=== PATIENT | male | born 1965 | race Caucasian/White ===

== ENCOUNTER → 2017-07-19 | Outpatient (CLI) | payer BC ==
[~2017-07-19] MED LIST: BND25X PO; IBUP-1050 PO; PRAV20TA PO
[2017-07-19 16:13] LABS: ALT/SGPT 24 U/L (12-78); BLOOD UREA NITROGEN 14 mg/dl (7-18); BUN/CREATININE RATIO 16.6 (10-20); CALCIUM 8.8 mg/dl (8.5-10.1); CARBON DIOXIDE 27 mmol/L (21-32); CHLORIDE 105 mmol/L (98-107); CREATININE 0.86 mg/dl (0.60-1.40); GLUCOSE 96 mg/dl (70-99); POTASSIUM 4.5 mmol/L (3.5-5.1); SODIUM 140 mmol/L (136-145)
[2017-07-19 16:21] LABS: ALKALINE PHOSPHATASE 83 U/L (45-117); AST/SGOT 14 U/L (15-37); CHOLESTEROL 174 mg/dl (0-200); CHOLESTEROL/HDL RATIO 3.4; HDL CHOLESTEROL 51 mg/dl; LDL CHOLESTEROL CALCULATED 97 mg/dl; PROSTATE SPECIFIC ANTIGEN 0.617 ng/ml (0.000-4.000); TRIGLYCERIDES 132 mg/dl (0-150); VERY LOW DENSITY LIPOPROT CALC 26 mg/dl
== END | disposition home or self-care (01) ==
LOC: C.LABBC 09:15
PROVIDERS: ATTEND Physician Assistant Medical
DX: E78.00 Pure hypercholesterolemia, unspecified (principal); Z12.5 Encounter for screening for malignant neoplasm of prostate

== ENCOUNTER → 2017-11-19 | Outpatient (CLI) | payer BC ==
[~2017-11-19] MED LIST changes: +ATOR-22 PO; +CETI10TA84 PO; +DIPH25CA65 PO; +NIAC500T11 PO
--- NOTE | 2017-11-19 09:12 | DIAGNOSTIC IMAGING REPORT ---
ABDOMEN FOR HERNIA CLINICAL HISTORY: K40.90 Left inguinal [id number] inguinal hernia TECHNIQUE: Ultrasound pre and post Valsalva COMPARISON STUDY: None FINDINGS: Fat and bowel-containing reducible left inguinal hernia. No significant surrounding soft tissue edema mild central criteria. IMPRESSION: Reducible fat and bowel containing left inguinal hernia. The above report was generated using voice recognition software. It may contain grammatical, syntax or spelling errors. Electronically signed by: Jerrell France M.D. 11/19/2017 9:11 AM Dictated Date/Time: 11/19/2017 9:10 AM
== END | disposition home or self-care (01) ==
LOC: C.ULTRBC 08:52
PROVIDERS: ATTEND Physician Assistant Medical
DX: K40.90 Unilateral inguinal hernia, without obstruction or gangrene, not specified as recurrent (principal)

== ENCOUNTER → 2017-12-01 | Day surgery (SDC) | payer BC ==
[2017-11-25 08:12] VITALS: BMI 27.0
--- NOTE | 2017-11-25 08:42 | PAT Medication Instructions ---
Service Date Nov 25, 2017. Current Home Medication List Atorvastatin (Lipitor), 20 MG PO HS Cetirizine (Zyrtec), 10 MG PO UD PRN for prn Diphenhydramine Hcl (Benadryl Allergy), 1 CAP PO UD PRN for allergies Ibuprofen (Advil), 200-600 MG PO Q4-6HR PRN Niacin (Niacin), 500 MG PO QAM Medication Instructions For Your Scheduled Surgery -Contact your surgeon for instructions for: Ibuprofen (Advil), 200-600 MG PO Q4-6HR PRN - Hold the following medications 24 hours prior to surgery: Niacin (Niacin), 500 MG PO QAM - Hold the following medications the morning of surgery: Cetirizine (Zyrtec), 10 MG PO UD PRN for prn Diphenhydramine Hcl (Benadryl Allergy), 1 CAP PO UD PRN for allergies - Take the following medications as scheduled the night before surgery: Atorvastatin (Lipitor), 20 MG PO HS Cetirizine (Zyrtec), 10 MG PO UD PRN for prn (if needed) Diphenhydramine Hcl (Benadryl Allergy), 1 CAP PO UD PRN for allergies (if needed ) If you have any questions please call us at [phone] or [phone] or [phone]
[2017-11-25 10:21] LABS: BASO % 0.2 %; BASO ABS # 0.01 K/uL (0-0.2); EOS % 1.2 %; EOS ABS # 0.07 K/uL (0-0.5); HEMATOCRIT 47.3 % (42-52); HEMOGLOBIN 15.8 g/dL (14.0-18.0); IG# 0.01 K/uL (0.00-0.02); LYMPH % 27.4 %; LYMPH ABS # 1.59 K/uL (1.2-3.4); MEAN CORPUSCULAR HEMOGLOBIN 31.7 pg (25-34); MEAN CORPUSCULAR HGB CONC 33.4 g/dl (32-36); MEAN PLATELET VOLUME 10.9 fL (7.4-10.4); MONO % 6.7 %; MONO ABS # 0.39 K/uL (0.11-0.59); NEUT % 64.3 %; NEUT ABS # 3.74 K/uL (1.4-6.5); PLATELET COUNT 168 K/uL (130-400); RED CELL DISTRIBUTION WIDTH CV 13.7 % (11.5-14.5); RED CELL DISTRIBUTION WIDTH SD 47.1 fL (36.4-46.3); WHITE BLOOD COUNT 5.81 K/uL (4.8-10.8)
[2017-11-25 10:30] LABS: CALCIUM 9.1 mg/dl (8.5-10.1); CREATININE 0.96 mg/dl (0.60-1.40); POTASSIUM 4.3 mmol/L (3.5-5.1)
[~2017-12-01] VITALS: Ht 172.7 cm; Wt 82.3 kg
[~2017-12-01] MED LIST changes: +ACET-1256 PO; +ATROPINE SULFATE 0.1 MG/ML 5ML SYR IV PRN; -BND25X PO; +BUPIVACAINE 0.5 % 5 MG/1 ML MPF 30ML VIAL ONE; +CEFAZOLIN 2000MG IV PUSH 15 ML IV SCH; +DEXAMETHASONE SOD INJ 4 MG/ML VIAL ONE; +EpHEDrine SULFATE INJ 50 MG/ML AMP IV PRN; +FENTANYL CITRATE INJ 50 MCG/1 ML 2 ML VIAL IV PRN; +FENTANYL CITRATE INJ 50 MCG/1 ML 2 ML VIAL ONE; +GLYCOPYRROLATE INJ 0.2 MG/ML VIAL ONE; +HYDROmorphone INJ 1 MG/ML SYR IV PRN; +LACTATED RINGER'S 1000ML 1,000 ML IV SCH; +MIDAZOLAM HCL 1 MG/ML 2ML VIAL ONE; +NEOSTIGMINE METHYLSULFATE 5 MG/5 ML SYR ONE; +ONDANSETRON INJ 2 MG/ML 2 ML VIAL IV PRN; +ONDANSETRON INJ 2 MG/ML 2 ML VIAL ONE; +OXYC-57 PO; +OXYCODONE/ACETAMINOPHEN 5-325 TAB PO PRN; -PRAV20TA PO; +PROPOFOL IV EMULSION 10 MG/ML 20 ML VIAL IV ONE; +ROCURONIUM BROMIDE 10 MG/ML 5 ML VIAL IV ONE; +SODIUM CHLORIDE 0.9% 1000ML 1,000 ML IV SCH; +SUCCINYLCHOLINE CHLORIDE 20 MG/ML 10 ML VIAL IV ONE
[2017-12-01 07:17] VITALS: BP 138/83; PULSE 70; TEMP 36.8; O2SAT 99; Ht 172.7 cm; Wt 82.3 kg
--- NOTE | 2017-12-01 08:23 | History & Physical Bridge Note ---
H&P Re-Evaluation Bridge Note: I have examined the patient, reviewed the History & Physical and in the interval since the performance of the History & Physical I have noted the following changes of clinical significance: No changes noted
--- NOTE | 2017-12-01 10:05 | [facility] Post Operative Brief Note ---
Immediate Operative Summary Operative Date Dec 01, 2017. Pre-Operative Diagnosis Left inguinal hernia Post-Operative Diagnosis indirect left inguinal hernia Procedure(s) Performed laparoscopic (TEP) left inguinal hernia repair with mesh Surgeon Dr Lopez Online Merchandising Coordinator Surgeon(s) Jen Martins PA-C Estimated Blood Loss 4 mL Findings Consistent with Post-Op Diagnosis Left indirect inguinal hernia, no right inguinal hernia Specimens None Drains None Anesthesia Type General Complication(s) none Disposition Accompanied Pt To Recover: no Disposition: Recovery Room / PACU
--- NOTE | 2017-12-01 10:10 | [facility] Operative Report ---
Operative Report Operative Date Dec 01, 2017. Pre-Operative Diagnosis Left inguinal hernia Post-Operative Diagnosis Indirect left inguinal hernia Procedure(s) Performed Laparoscopic (TEP) left inguinal hernia repair with mesh Surgeon Dr Lopez Shipping Lead Person Surgeon(s) Jen Martins PA-C Estimated Blood Loss 4 mL Findings Indirect left inguinal hernia, no hernia on the right. Progrip mesh placed on left. Specimens None Drains None Anesthesia GETA Complication(s) None Disposition Recovery Room / PACU Indications 52-year-old male with symptomatic left inguinal hernia, plan for laparoscopic left inguinal hernia repair, possible right. The risks of the procedure were discussed, all questions were answered, and the patient agreed to proceed with surgery as planned. Description of Procedure The patient was properly identified, consented, and taken to the operating room where he was placed in the supine position. General endotracheal anesthesia was induced. SCDs and a safety belt were placed. A gonzalez catheter was placed. Preoperative antibiotics were administered. The patient's groins and abdomen were prepped and draped in the standard sterile fashion. Surgical timeout was performed and all parties were in agreement that this was the correct patient and procedure to be performed and we continued as planned. A transverse infraumbilical incision was made to the right of midline with electrocautery and deepened down to the fascia with blunt dissection. A transverse incision was made in the anterior rectus sheath on the right. The rectus muscle was pulled laterally exposing the posterior rectus sheath. A large Noris was used to bluntly dissect the preperitoneal space down to the pubic symphysis. This was then replaced with a laparoscopic preperitoneal dissection balloon, which was inflated under direct visualization and held in place for approximately 30 seconds. This was then removed and the preperitoneal space was insufflated with carbon dioxide which the patient tolerated without incident. Two 5 mm ports were then placed in the midline. Dissection started on the left, beginning laterally at the anterior superior iliac spine. Nico's ligament was then dissected medially. The cord structures were circumferentially dissected. A moderate sized indirect hernia was noted. It was dissected away from the cord structures and the hernia sac was reduced. The contralateral side was then dissected in a similar manner, and no hernia was noted. Progrip mesh was placed on the left and covered the direct, indirect , and femoral spaces. The mesh was held in place, the ports were removed, and the space was allowed to collapse. The anterior rectus sheath fascia was closed with 3-0 Vicryl suture. The skin of all port sites were closed with 4-0 Monocryl subcuticular suture, and Dermabond was placed over the incisions. The patient was extubated in the operating room and taken to the PACU for recovery without apparent incident. Any air in the scrotum was reduced, and the testicles were confirmed to be in the scrotum. All sponge, instrument, and needle counts were correct at the conclusion of the procedure. The patient tolerated the procedure well. The physician's account assistant was present and scrubbed for the entirety of the case. She was essential in positioning the patient, prepping and draping, retraction and exposure, closure, placement of the dressings. I attest to the content of the Intraoperative Record and any orders documented therein. Any exceptions are noted below.
--- NOTE | 2017-12-01 10:21 | Discharge Instructions ---
Discharge Instructions Date of Service Dec 01, 2017. Admission Reason for Admission: Left Inguinal Hernia Discharge Discharge Diagnosis / Problem: Left Inguinal Hernia Discharge Goals Goal(s): Decrease discomfort, Improve function Activity Recommendations Activity Limitations: as noted below Lifting Limitations: no more than 10 pounds Exercise/Sports Limitations: until after follow-up appointment May Resume Sexual Activity: after follow-up appointment Shower/Bathe: tomorrow Driving or Machine Use: resume 1 day after discharge . Instructions / Follow-Up Instructions / Follow-Up Please follow-up with Dr. Lopez in the general surgery clinic in 1-2 weeks. Please call the office at [phone] to make an appointment if you do not have one already. Please call the office with any questions or concerns. Current Hospital Diet Patient's current hospital diet: Discharge Diet Recommended Diet: Regular Diet Procedures Procedures Performed: laparoscopic (TEP) left inguinal hernia repair with mesh Pending Studies Studies pending at discharge: no Medical Emergencies . Who to Call and When: Medical Emergencies: If at any time you feel your situation is an emergency, please call 911 immediately. . Non-Emergent Contact Non-Emergency issues call your: Primary Care Provider, Surgeon Call Non-Emergent contact if: temperature is above 101.5, your pain is not controlled, wound has increased drainage, wound has increased redness . "Provider Documentation" section prepared by Jen Martins. . VTE Core Measure Inpt VTE Proph given/why not?: SCD's [place] Drug Monitoring Program Search Results: patient reviewed within database, no issues identified
--- NOTE | 2017-12-01 10:36 | Anesthesiology Progress Note ---
Anesthesia Post Op Note Date & Time Dec 01, 2017 at 10:36 Vital Signs Pain Intensity: 0 Vital Signs Past 12 Hours Date Time Temp Pulse Resp B/P (MAP) Pulse Ox O2 Delivery O2 Flow Rate FiO2 12/01/17 10:25 61 23 129/89 98 Oxymask 10 12/01/17 10:17 36.0 67 25 149/104 100 Oxymask 10 12/01/17 07:17 36.8 70 20 138/83 (101) 99 Room Air Notes Mental Status: alert / awake / arousable, participated in evaluation Pt Amnestic to Procedure: Yes Nausea / Vomiting: adequately controlled Pain: adequately controlled Airway Patency, RR, SpO2: stable & adequate BP & HR: stable & adequate Hydration State: stable & adequate Anesthetic Complications: no major complications apparent
[2017-12-01 11:00] VITALS: BP 125/81; PULSE 55; TEMP 36.2; O2SAT 99
[2017-12-01 11:30] VITALS: BP 124/80; PULSE 55; TEMP 36.2; O2SAT 97
[2017-12-01 12:05] VITALS: BP 123/78; PULSE 72; O2SAT 99
== END | disposition home or self-care (01) ==
LOC: C.ACU 06:44
PROVIDERS: ATTEND Surgery
DX: K40.90 Unilateral inguinal hernia, without obstruction or gangrene, not specified as recurrent (principal); M47.812 Spondylosis without myelopathy or radiculopathy, cervical region; E78.00 Pure hypercholesterolemia, unspecified; Z79.899 Other long term (current) drug therapy